=== PATIENT | male | born 1995 | race African-American/Black ===

== ENCOUNTER 2022-04-16 16:28 | Inpatient (IN) | payer MEDICARE, MEDICAID ==
[~2022-04-16] VITALS: Ht 162.6 cm; Wt 94.8 kg
[~2022-04-16 16:28] MED LIST: ARIP5TAB37 PO; MIRT-89 PO
[2022-04-16] MEDS ORDERED: LORazepam 2 MG TABLET PO PRN (21:15)
[2022-04-16] MEDS ORDERED: PNEUMOCOCCAL VACCINE POLYVALENT 0.5 ML VIAL [PPSV23] IM. ONE (21:15)
[2022-04-16] MEDS ORDERED: HALOPERIDOL 5 MG TABLET PO PRN (21:15)
[2022-04-16] MEDS ORDERED: ZOLPIDEM TARTRATE 10 MG TABLET PO PRN (21:15)
[2022-04-17 00:54] VITALS: BP 124/67
[2022-04-17] MEDS ORDERED: IBUPROFEN 400 MG TABLET PO PRN (06:45)
[2022-04-17] MEDS ORDERED: ACETAMINOPHEN 325 MG TABLET PO PRN (06:45)
[2022-04-17] MEDS ORDERED: ONDANSETRON HCL 4 MG TABLET PO PRN (07:00)
[2022-04-17] MEDS ORDERED: DOCUSATE SODIUM 100 MG CAPSULE PO PRN (07:00)
[2022-04-17] MEDS ORDERED: MAG HYDROX/AL HYDROX/SIMETH ES 30 ML SUSPENSION UDCUP PO PRN (07:00)
[2022-04-17] MEDS ORDERED: GuaiFENesin/D-METHORPHAN [SUGAR-FREE] 200-20MG/10 ML SYRUP UDCUP PO PRN (07:00)
[2022-04-17] MEDS ORDERED: NICOTINE 14 MG/24 HOUR PATCH TD PRN (07:00)
[2022-04-17] MEDS ORDERED: MAGNESIUM HYDROXIDE SUSPENSION 30 ML UDCUP PO PRN (07:00)
[2022-04-17] MEDS ORDERED: LOPERAMIDE HCL 2 MG CAPSULE PO PRN (07:00)
[2022-04-17] MEDS ORDERED: CloNIDine HCL 0.1 MG TABLET PO PRN (07:00)
[2022-04-17] MEDS ORDERED: ALBUTEROL SULFATE HFA 90 MCG/PUFF 8 GM INHALER IH PRN (07:00)
[2022-04-17] MEDS ORDERED: PETROLATUM,WHITE 28 GM JELLY TP PRN (07:00)
[2022-04-17] MEDS: IBUPROFEN 400 MG TABLET PO PRN ×2 (07:41→16:35)
[2022-04-17 08:57] VITALS: BP 104/70
[2022-04-17 16:35] VITALS: BP 113/74
[2022-04-17] MEDS: ARIPiprazole 5 MG TABLET PO SCH (19:54)
[2022-04-17] MEDS: MIRTAZAPINE 15 MG TABLET PO SCH (19:54)
[2022-04-17 20:18] VITALS: BP 112/61
[2022-04-18 08:57] VITALS: BP 104/66
[2022-04-18] MEDS: IBUPROFEN 400 MG TABLET PO PRN ×2 (12:35→23:46)
[2022-04-18] MEDS: MIRTAZAPINE 15 MG TABLET PO SCH (20:55)
[2022-04-18] MEDS: ARIPiprazole 5 MG TABLET PO SCH (20:56)
[2022-04-18 21:27] VITALS: BP 124/60
[2022-04-19] MEDS ORDERED: MAGNESIUM SULFATE 454 GM BAG TP SCH (09:00)
[2022-04-19 10:46] VITALS: BP 125/90
[2022-04-19] MEDS: MAGNESIUM SULFATE 454 GM BAG TP SCH ×2 (10:54→17:00)
[2022-04-19] MEDS: IBUPROFEN 400 MG TABLET PO PRN ×2 (10:54→20:56)
[2022-04-19 20:02] VITALS: BP 125/66
[2022-04-19] MEDS: ARIPiprazole 5 MG TABLET PO SCH (20:04)
[2022-04-19] MEDS: MIRTAZAPINE 15 MG TABLET PO SCH (20:04)
[2022-04-20 06:44] VITALS: BP 128/76
[2022-04-20 08:37] VITALS: BP 135/82
[2022-04-20] MEDS: MAGNESIUM SULFATE 454 GM BAG TP SCH ×2 (08:51→17:00)
[2022-04-20 20:13] VITALS: BP 133/74
[2022-04-20] MEDS: MIRTAZAPINE 15 MG TABLET PO SCH (20:49)
[2022-04-20] MEDS: ARIPiprazole 5 MG TABLET PO SCH (20:49)
[2022-04-21 08:42] VITALS: BP 118/87
[2022-04-21] MEDS: MAGNESIUM SULFATE 454 GM BAG TP SCH ×2 (09:00→16:44)
[2022-04-21 11:41] LABS: GLUCOMETER DEV NAME(LOC) POC.BV
[2022-04-21] MEDS: ACETAMINOPHEN 325 MG TABLET PO PRN (14:48)
[2022-04-21] MEDS: LEVOFLOXACIN 500 MG TABLET PO SCH (19:03)
[2022-04-21] MEDS: MIRTAZAPINE 15 MG TABLET PO SCH (20:14)
[2022-04-21] MEDS: ARIPiprazole 5 MG TABLET PO SCH (20:14)
[2022-04-22 07:08] VITALS: BP 120/82
[2022-04-22 08:10] VITALS: BP 125/60
[2022-04-22] MEDS: LEVOFLOXACIN 500 MG TABLET PO SCH (08:30)
[2022-04-22] MEDS: IBUPROFEN 400 MG TABLET PO PRN (08:30)
[2022-04-22] MEDS: MAGNESIUM SULFATE 454 GM BAG TP SCH ×2 (08:36→17:00)
[2022-04-22 18:00] VITALS: BP 122/96
[2022-04-22] MEDS: ACETAMINOPHEN 325 MG TABLET PO PRN (18:07)
[2022-04-22] MEDS: ARIPiprazole 5 MG TABLET PO SCH (20:04)
[2022-04-22] MEDS: MIRTAZAPINE 15 MG TABLET PO SCH (20:04)
[2022-04-22 20:05] VITALS: BP 115/90
[2022-04-23 04:47] VITALS: BP 123/76
[2022-04-23 08:30] VITALS: BP 118/70
[2022-04-23] MEDS: MAGNESIUM SULFATE 454 GM BAG TP SCH ×2 (09:00→16:50)
[2022-04-23] MEDS: LEVOFLOXACIN 500 MG TABLET PO SCH (09:07)
[2022-04-23] MEDS ORDERED: LEVO750T68 PO (17:48)
[2022-04-23 20:14] VITALS: BP 120/72
[2022-04-23] MEDS: MIRTAZAPINE 15 MG TABLET PO SCH (20:31)
[2022-04-23] MEDS: ARIPiprazole 5 MG TABLET PO SCH (20:31)
[2022-04-24] MEDS ORDERED: MIRT-89 PO (10:47)
[2022-04-24] MEDS ORDERED: ARIP5TAB37 PO (10:47)
== END 2022-04-24 07:05 | disposition home or self-care (01) | DRG 885 ==
LOC: B2X 21:04
PROVIDERS: ADMIT Psychiatry & Neurology Child & Adolescent Psychiatry; ATTEND Psychiatry & Neurology Child & Adolescent Psychiatry
DX: F31.5 Bipolar disorder, current episode depressed, severe, with psychotic features (principal); G40.909 Epilepsy, unspecified, not intractable, without status epilepticus; I10 Essential (primary) hypertension; E66.9 Obesity, unspecified; F10.10 Alcohol abuse, uncomplicated; F41.9 Anxiety disorder, unspecified; Z20.822 Contact with and (suspected) exposure to COVID-19; Z91.14 Patient's other noncompliance with medication regimen; Z79.899 Other long term (current) drug therapy; Z68.35 Body mass index [BMI] 35.0-35.9, adult
CPT/HCPCS: 90732